=== PATIENT | female | born 1955 | race Caucasian/White ===

== ENCOUNTER → 2017-06-19 | Outpatient (CLI) | payer BC ==
[~2017-06-19] VITALS: Ht 177.8 cm; Wt 81.7 kg
[~2017-06-19] MED LIST: AMITRIPTYLINE H10 M3 PO; ARIMIDEX PO; CELEBREX 200 M200 M1 PO; CYMBALTA20 MG PO; CYMBALTA60 MG PO; MEDROLDOSEPACK PO; MOBIC15 MG PO; NICOTINE TRANSD21 M1 TRANSDERM; NOLVADEX10 MG PO; PROLIA60 MG/1 ML SUBQ; PROVERA5 MG PO; TRAMADOL 50 MG50 MG PO; ULTRAM 50MG TAB50 MG; VIVELLE1 EAC1 TD; ZOFRAN ODT4 MG DISSOLVE; [UNRECOGNIZED DRUG - OTHER] PO; [UNRECOGNIZED DRUG - OTHER] PO
--- NOTE | ~2017-06-19 | HPC ---
[facility] [place] [address] PAIN MANAGEMENT CONSULTATION Name: ARIELA MICHEL Room #: REG [facility] Faye.#: [id number] Admission: 06/19/17 Attend Phys: Anne Rodriguez MD Discharge: Date of : 59 Report #: [id number] THIS REPORT FOR: //name// CC: KIKO Rodriguez DATE OF SERVICE: 06/19/2017 CHIEF COMPLAINT: "Pain in the neck and going down into my arm with numbness in my fingers." HISTORY OF PRESENT ILLNESS: The patient is a 62-year-old female who has been referred to the Pain Clinic for evaluation. The patient states that she had some pain and discomfort in her right arm. She was evaluated. It was felt that she had pain, which was as a result of pathology in her right shoulder and clavicular area. She underwent surgery and noted some improvement in this area. She then underwent physical therapy. Since that time, she has noted worsening of pain and discomfort in her neck with pain radiating down into her arm with numbness, tingling and burning involving the right shoulder, forearm, and fingers. She denies any trauma since her surgery. She has felt that the physical therapy has limited her ability to range her shoulder. She is able to lift her shoulder to about parallel to the floor, but not higher than that. She describes the intensity of her pain as a 7/10. She had surgery in April 2017. Notes that the pain is much better when she "does nothing." She states that about 7 months ago, she was standing on her deck. Pain became progressively worse and that was the time when she started to notice more problems. She also has history of breast cancer. She states that at this juncture, she had some area which was possibly infected. This area was lanced and she has been followed up by her surgeon for the possibility of an infection. The patient had an EMG study because of the pain with numbness, weakness and tenderness she was experiencing in the right arm. ALLERGIES: CODEINE CAUSES NAUSEA AND VOMITING. CURRENT MEDICATIONS: Cymbalta 60 mg daily, tramadol 50 mg 1-2 tablets daily, anastrozole 1 mg daily. PAST MEDICAL HISTORY: Breast cancer, fibromyalgia, osteoporosis. PAST SURGICAL HISTORY: Hysterectomy, tonsillectomy, adenoidectomy, lumpectomy with radiation August 2016, shoulder surgery in 04/19/2017, hysterectomy 2014. FAMILY HISTORY: Positive for coronary artery disease in mother, father, brother grandparents; skin cancer in brother; stomach cancer in grandfather; [place] [address] PAIN MANAGEMENT CONSULTATION Name: ARIELA MICHEL Room #: REG [facility].#: [id number] Admission: 06/19/17 Attend Phys: Anne Rodriguez MD Discharge: Date of : 59 Report #: [id number] mother and father; cerebrovascular accident maternal grandmother. 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 She is , has 2 children. She has not been working for 3 months because of the surgery. Drinks alcohol approximately 2 drinks per week, stopped smoking about 1 year ago. REVIEW OF SYSTEMS: Questionnaire 14 points generally good health, fever, night sweats, fatigue, weakness, headaches, wears glasses, varicose veins, breast pain, numbness and tingling sensation involving the right arm with numbness down to the fingers. LABORATORY DATA: Electromyography diagnosis; Impression: Cervical radiculopathy. Today's electromyographic data: Nerve conduction testing of the right median and ulnar motor and sensory nerves was normal with normal amplitude of action potentials, conduction velocities including across the wrist and elbow, distal latencies and F1 responses. Right radial, medial and lateral antebrachial cutaneous sensory nerve testing was also normal. Screening needle EMG examination of the right upper extremity, cervical and high thoracic paraspinal muscles revealed no increase in insertional or resting activity. There was a reduced voluntary interference pattern with large amplitude, long duration and polyphasic motor unit firings at an increased rate in the indicated muscles. Interpretation of abnormal study due to the above findings. These findings are most consistent with a longstanding, at least 3 months' duration, and inactive right C8 radiculopathy. There is, at present, no electrode diagnostic evidence of other nerve entrapment syndrome, radiculopathy or plexopathy affecting the right upper extremity. MRI of the cervical spine dated 04/12/2017 reveals mild posterior C4/C5, C5/C6, and C6/C7 disk bulge osteophyte spurring is present. There is a mild central posterior C7/T1 disk protrusion. The spinal canal and neural foramen are normal in diameter. The spinal cord is normal in size and configuration with normal signal intensity. Cervical vertebrae are intact with normal alignment and marrow signal. Impression: 1. Mild broad posterior C4/C5, C5/C6, C6/C7 disk bulge osteophyte spurring. 2. Minimal central posterior disk protrusion. PHYSICAL EXAMINATION: VITAL SIGNS: Blood pressure 157/84, pulse 70, respiratory rate 16, room air saturation 98%. Height 5 feet 10 inches, weight 177 pounds, BMI is 25. GENERAL: Well-developed, well-nourished female, moving with her right hand in a guarded fashion. Appearance, age appropriate. Orientation, alert and oriented. Affect appropriate. HEENT: Head is atraumatic. Eyes: Extraocular muscles intact, conjunctivae and sclerae are clear with no nystagmus. Ears: Grossly normal hearing. Nose: No [facility] [address] [place] [address] PAIN MANAGEMENT CONSULTATION Name: ARIELA MICHEL Room #: REG [facility].#: [id number] Admission: 06/19/17 Attend Phys: Anne Rodriguez MD Discharge: Date of : 59 Report #: [id number] deformity or discharge. Mouth: Dentition appears good. No exudate and membranes are moist. NECK: Without adenopathy. No bruits or JVD. The patient does have some soreness to palpation in the area of the right scapular area. Complains of pain and discomfort radiating down her right deltoid, forearm with numbness in her fingers and thumb. HEART: Regular rate. LUNGS: Clear to auscultation. ABDOMEN: Nontender. MUSCULOSKELETAL: Appears to be normally aligned without scoliosis, kyphosis or lordosis. Left and right sciatic outflow tract are negative. Left lateral bending, right lateral bending, lumbar extension, lumbar rotation are all within normal limits. The patient complains of pain and discomfort in the right shoulder area with these movements. Upper arm musculature judged to be 5/5 in the left upper extremity. The patient gives way to pain and discomfort in the healing right shoulder area. Deep tendon reflexes are +2 at the right biceps, +1 at the triceps and brachioradialis. Deep tendon reflexes are +1 biceps, trace triceps and brachioradialis. Deep tendon reflexes are +2 at the knees and ankles bilaterally. Muscle strength is 5/5 for the major muscle groups of the lower extremity. 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 Wrist flexion and extension 5/5 on the left, 4+ on the right. The patient complains of a sensation of burning, tingling and decreased sensation in the right shoulder, arm, forearm and involving her thumb, index and middle finger which are numb. Skin color appears normal bilaterally. No clubbing, cyanosis or edema in the lower extremities. Spurling's maneuver increased pain and discomfort down in the right shoulder, arm and hand. IMPRESSION: 1. Cervical radiculopathy with numbness and tingling in the right arm, hand and fingers. EMG C8 radiculopathy. 2. Fibromyalgia. 5. Osteoporosis. 6. Breast cancer - the patient states that this had been lanced in the reconstructed area. It is still being treated for possibility of infection. RECOMMENDATIONS: We have discussed the treatment options with the patient. Given that she has had a mastectomy, the area appears to be under treatment for possibility of infection, we will not proceed with an epidural steroid injection today. We have discussed the possible complications of steroid use at the times of infection. We have also discussed to refrain from using tobacco products, this can exacerbate healing. We will have the patient follow up with her primary physician. If he feels that the infection has passed, we will then have the patient return to the Pain Clinic, at which time we will consider a cervical epidural steroid injection. Of course, the patient is eager to get back to work because of the amount of time she has been off. We will try amitriptyline to notice effectiveness and decreasing some of the shooting, burning pain, which [facility] [address] [place] [address] PAIN MANAGEMENT CONSULTATION Name: ARIELA MICHEL Room #: REG CL [place]#: [id number] Admission: 06/19/17 Attend Phys: Anne Rodriguez MD Discharge: Date of : 59 Report #: [id number] she is experiencing. This medication can often times be helpful with these types of pains. We have given her a script, 10 mg tablets have been given, and she has been advised on how to take them. She will call us if she has any problems with her medications. We will consider an epidural steroid injection on her return. We would like to thank you for letting us participate in her care. We hope she continues to improve. <ELECTRONICALLY SIGNED> By: Anne Rodriguez MD 08/12/17 1415 [id number] [id number] Anne Rodriguez MD /nt
[2017-06-19 09:52] VITALS: BP 157/84
== END ==
LOC: PAIN 12-18 09:48
DX: M50.221 Other cervical disc displacement at C4-C5 level (principal); M50.222 Other cervical disc displacement at C5-C6 level; M50.223 Other cervical disc displacement at C6-C7 level; M46.02 Spinal enthesopathy, cervical region; M25.78 Osteophyte, vertebrae; Z85.3 Personal history of malignant neoplasm of breast; Z87.891 Personal history of nicotine dependence; Z72.89 Other problems related to lifestyle

== ENCOUNTER → 2017-06-24 | Outpatient (CLI) | payer BC ==
[~2017-06-24] VITALS: Ht 177.8 cm; Wt 82.8 kg
--- NOTE | ~2017-06-24 | HPC ---
[facility] [place] [address] [place] [address] PAIN MANAGEMENT CONSULTATION Name: CIRILO RIVERSARIELA PRASAD Room #: REG [facility]RY Faye.#: [id number] Admission: 06/24/17 Attend Phys: Anne Rodriguez MD Discharge: Date of : 59 Report #: [id number] THIS REPORT FOR: //name// CC: Darren Rodriguez DATE OF SERVICE: 06/24/2017 FOLLOWUP COMPLAINT. "There is no infection at this point in the breast and I have come to undergo the cervical epidural injection." FOLLOWUP HISTORY: The patient is a 62-year-old female who has been seen in the pain clinic because of cervical radiculopathy with experience of pain radiating down into the right arm with numbness, weakness and tenderness down into her fingers. FOLLOWUP HISTORY: The patient is returning to the pain clinic. She was seen at the last visit on 06/19/2017. At that time, she had pain, which was radiating down into her right arm with findings consistent with cervical radiculopathy. She also had an EMG study secondary to the numbness, weakness and tenderness she was experiencing in her right arm. She rates her pain as a 7/10 at this juncture. She has followed up with her surgeon. There was some question as to possibility of infection in the area of her mastectomy. After evaluation by the surgery, it was found that things have healed reasonably well and she is not infected in the mastectomy site. There is no drainage. States that her physician stated it would be okay if she underwent an epidural injection at this juncture. ALLERGIES: CODEINE CAUSES NAUSEA AND VOMITING. CURRENT MEDICATIONS: Cymbalta 60 mg daily, tramadol 50 mg 1-2 tablets daily, anastrozole 1 mg daily. PAST SURGICAL HISTORY: Lumpectomy with radiation in 08/2016. Shoulder surgery on 04/19/2017. PAIN CLINIC ASSESSMENT: 1. History of osteoarthritis/rheumatoid arthritis. The patient is not being treated for either of these. 2. Height 5 feet 10 inches tall, weight 187 pounds. 3. BMI is 26. 4. VITAL SIGNS: Blood pressure 133/72, pulse 70, respiratory rate 16, room air saturation 100%. Pain intensity 7/10. 5. Fall risk. The patient is not a fall risk, has not fallen in the last [address] [address] PAIN MANAGEMENT CONSULTATION Name: CIRILO RIVERSARIELA Room #: REG CLI RosauraRosaura#: [id number] Admission: 06/24/17 Attend Phys: Anne Rodriguez MD Discharge: Date of : 59 Report #: [id number] 6. The patient is not on a blood thinner. 7. History of hypertension. The patient is not being treated for hypertension. 8. Opioid therapy greater than 6 weeks. The patient is not on opioid therapy greater than 6 weeks. 9. Tobacco use. Did smoke, but stopped about 1 year ago approximately 2 alcoholic beverages per week. PHYSICAL EXAMINATION: GENERAL: The patient is a well-developed female in no apparent distress, appears stated age. ORIENTATION: Alert and oriented x 3. Affect is appropriate. HEENT: Head is atraumatic. Eyes: Her extraocular eye muscles intact. Conjunctival and sclerae are clear without nystagmus. Ears, grossly normal hearing. Nose: No deformity or discharge. Mouth and dentation appears normal. No exudate. Membranes are moist. NECK: Without adenopathy, bruits, or JVD. The patient does have some soreness in the area of the right scapular area. Notes pain and discomfort with radiation down to the right deltoid area, has numbness and changes in her forearm, finger and thumb of the right. HEART: Rate regular. LUNGS: Clear. ABDOMEN: Nontender. EXTREMITIES: Upper musculature is judged to be 5/5 in the left upper extremity, right arm gives way to pain and discomfort in the healing right shoulder area. Deep tendon reflexes are +2 at the right biceps and +1 to the triceps and brachioradialis. IMPRESSION: 1. Cervical radiculopathy with numbness and tingling in the right arm, hand and fingers. EMG showing a C8 radiculopathy. 2. The patient is not having any discharge or signs of infection in the area of the mastectomy. 3. Fibromyalgia. 4. Osteoporosis. 5. Shoulder pain status post surgery on the right. RECOMMENDATIONS: We discussed treatment options with the patient. Risks and benefits of the epidural steroid injection were discussed. She has seen her surgeon. Does not appear to have any infection going on at this juncture. She has returned for a cervical epidural steroid injection. Risks and benefits of the procedure were again reviewed with the patient. They include, but are not limited to infection, increased muscle soreness, cervical radicular pain, worsening, nerve damage, cervical or spinal headache and the patient elects to proceed. PROCEDURE NOTE: The patient was placed in the prone position. Fluoroscopy was [facility] [address] [place] [address] PAIN MANAGEMENT CONSULTATION Name: ARIELA MICHEL Room #: REG CORRY Laughlin#: [id number] Admission: 06/24/17 Attend Phys: Anne Rodriguez MD Discharge: Date of : 59 Report #: [id number] used to identify the C7-T1 interspace. This area had been sterilely prepped with Betadine and infiltrated with 0.25% bupivacaine. After appropriate location of the target site, 0.25% bupivacaine was infiltrated into this area. A 17-gauge Tuohy with loss of resistance technique was used to gain access to the epidural space. There was no CSF, heme or paresthesia. A total of 120 mg triamcinolone was placed. Anterior and lateral imaging with fluoroscopy confirmed appropriate placement. The patient was then taken to the recovery room. A Band-Aid was at the site. There was no bleeding. She remained in the pain clinic for an appropriate amount of time. She will follow up in the future as needed. We would like to thank you for letting us participate in her care. We hope she continues to improve. <ELECTRONICALLY SIGNED> By: Anne Rodriguez MD 07/08/17 1007 [id number] Anne Rodriguez MD /YULY
[2017-06-24 11:07] VITALS: BP 133/72
== END | disposition home or self-care (01) ==
LOC: PAIN 06:56
DX: M54.12 Radiculopathy, cervical region (principal); M79.7 Fibromyalgia; I10 Essential (primary) hypertension; M19.90 Unspecified osteoarthritis, unspecified site; M81.0 Age-related osteoporosis without current pathological fracture; M25.511 Pain in right shoulder; Z98.890 Other specified postprocedural states; Z88.6 Allergy status to analgesic agent; Z87.891 Personal history of nicotine dependence; Z79.891 Long term (current) use of opiate analgesic; Z79.899 Other long term (current) drug therapy

== ENCOUNTER → 2017-07-29 | Outpatient (CLI) | payer BC ==
[~2017-07-29] VITALS: Ht 177.8 cm; Wt 83.9 kg
--- NOTE | ~2017-07-29 | HPC ---
[facility] [address] [place] [address] PAIN MANAGEMENT CONSULTATION Name: ARIELA MICHEL Room #: REG CORRY Truman#: [id number] Admission: 07/29/17 Attend Phys: Anne Rodriguez MD Discharge: Date of : 59 Report #: [id number] THIS REPORT FOR: //name// CC: KIKO Rodriguez DATE OF SERVICE: 07/29/2017 FOLLOWUP COMPLAINT: Pain in the arms, fingers with numbness has improved. Having some right shoulder pain. FOLLOWUP HISTORY: The patient is a 62-year-old female who has been seen in the pain clinic because of cervical radiculopathy with some numbness, tingling and discomfort down into her right arm and fingers. She has been found to have C8 radiculopathy. She underwent a cervical epidural steroid injection in June. She has noticed some improvement in her pain. She initially noted some increased pain and discomfort. Over the next week or so her pain continued to improve. 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 She has been able to return to work. She also has had surgery. There was an area of possible infection in the area of her mastectomy. This has resolved. Overall, she feels that things are going reasonably well and improving. She still has some pain and discomfort in her right shoulder. She has undergone a manipulation of the right shoulder. There is increased pain and discomfort in that joint and area. Overall, things have improved, but she is still having some discomfort and at this juncture would like to continue on a conservative approach. She will consider another cervical epidural steroid injection if Mobic and a Medrol Dosepak are not helpful. She will continue working. She will call us if she has any problems. ALLERGIES: CODEINE CAUSES NAUSEA AND VOMITING. CURRENT MEDICATIONS: Include Cymbalta 60 mg daily, tramadol 50 mg 1-2 tablets daily, anastrozole 1 mg daily. PAST SURGICAL HISTORY: Shoulder surgery 04/19/2017, lumpectomy with radiation in 08/2016. PAIN CLINIC ASSESSMENT: 1. The patient has history of osteoarthritis and rheumatoid arthritis. 2. Height 5 feet 10 inches, weight 187 pounds, BMI is 26.5. 3. Vital signs, blood pressure 144/84, pulse 78, respiratory rate 16, room air saturation is 98%. 4. Pain Intensity: 6/10. 5. Fall Risk: The patient has not fallen in the last 3 months. 6. Blood thinner: The patient is [place] [address] PAIN MANAGEMENT CONSULTATION Name: ARIELA MICHEL [id number] Admission: 07/29/17 Attend Phys: Anne Rodriguez MD Discharge: Date of : 59 Report #: [id number] 7. Hypertension. The patient is not being treated for hypertension. 8. Opioid therapy, greater than 6 weeks. The patient is not on a long-term opioid regimen. 9. Risk assessment tool. 10. Functional assessment tool. 11. The patient's impact score is 49/70 in regards to general activities, mood, walking ability, work, relationships with others, sleep and enjoyment of life. 12. Recreational drug use: The patient denies use of recreational drugs. 13. Tobacco: The patient smokes 1 pack per day, has smoked for 25 years. Drinks alcoholic beverages on occasion, approximately 1 per week. PHYSICAL EXAMINATION: GENERAL: The patient is a well-developed white female with no apparent distress. Appears her stated age. ORIENTATION: The patient is alert and oriented x 3. Affect is appropriate. HEENT: Head is atraumatic, normocephalic. Extraocular eye muscles intact. No nystagmus. Hearing is grossly normal. No nasal discharge or complaint. Mouth is moist. NECK: Without adenopathy, bruits or JVD. The patient does have some soreness in the area of her right scapula. Notes some pain and discomfort, which radiated down into the right, though improved somewhat since we saw her last, less discomfort in the deltoid, forearm, fingers and thumb. HEART: Regular rate. Normal S1, S2. LUNGS: Clear to auscultation. ABDOMEN: Nontender. EXTREMITIES: Upper extremity is judged to be 5/5 with normal bulk and symmetrical musculature. The patient has a healing right shoulder. Deep tendon reflexes are +2 on the right biceps and +1 on the triceps and brachioradialis. IMPRESSION: 1. Cervical radiculopathy with numbness and tingling in the right arm, improving. EMG shows C8 radiculopathy. 2. The patient is recovering from a manipulation of the right shoulder approximately 2 weeks ago, having signs of frozen shoulder. 3. Fibromyalgia. 4. Osteoporosis. RECOMMENDATIONS: We discussed treatment options with the patient. At this juncture, she is doing reasonably well. She still has some pain and discomfort in the right shoulder, which is status post manipulation. She has some continued pain down into her arm. Notes that the pain was significant after the injection, but improved as time went on. She has noticed that she has gained some weight. She attributes this to use of Elavil at bedtime. At this juncture, she chooses not to continue with use of Elavil because of the weight gain. She would like to try conservative approach. We will provide her with a Medrol Dosepak and Mobic to take over the next couple of weeks. Again, if she [facility] [address] [address] PAIN MANAGEMENT CONSULTATION Name: ARIELA MICHEL Room #: REG [facility].#: [id number] Admission: 07/29/17 Attend Phys: Anne Rodriguez MD Discharge: Date of : 59 Report #: [id number] finds that her pain continues to be problematic, she will return and at which time we will consider a second cervical epidural steroid injection. We would like to thank you for letting us participate in her care. We hope she continues to improve. <ELECTRONICALLY SIGNED> By: Anne Rodriguez MD 08/12/17 1434 0817 2217 Anne Rodriguez MD /YULY
--- NOTE | ~2017-07-29 | HPC ---
[facility] [place] [address] PAIN MANAGEMENT CONSULTATION Name: ARIELA MICHEL Room #: REG CORRY MckinneyRosaura#: [id number] Admission: 07/29/17 Attend Phys: Anne Rodriguez MD Discharge: Date of : 59 Report #: [id number] THIS REPORT FOR: //name// CC: KIKO Rodriguez DATE OF SERVICE: 07/29/2017 ADDENDUM PAIN CLINIC ASSESSMENT: 1. The patient's impact score is 49/70 in regards to general activities, mood, walking ability, work, relationships with others, sleep and enjoyment of life. 2. Recreational drug use: The patient denies use of recreational drugs. 3. Tobacco: The patient smokes 1 pack per day, has smoked for 25 years. Drinks alcoholic beverages on occasion, approximately 1 per week. PHYSICAL EXAMINATION: GENERAL: The patient is a well-developed white female with no apparent distress. Appears her stated age. ORIENTATION: The patient is alert and oriented x 3. Affect is appropriate. HEENT: Head is atraumatic, normocephalic. Extraocular eye muscles intact. No nystagmus. Hearing is grossly normal. No nasal discharge or complaint. Mouth is moist. NECK: Without adenopathy, bruits or JVD. The patient does have some soreness in the area of her right scapula. Notes some pain and discomfort, which radiated down into the right, though improved somewhat since we saw her last, less discomfort in the deltoid, forearm, fingers and thumb. HEART: Regular rate. Normal S1, S2. LUNGS: Clear to auscultation. ABDOMEN: Nontender. EXTREMITIES: Upper extremity is judged to be 5/5 with normal bulk and symmetrical musculature. The patient has a healing right shoulder. Deep tendon reflexes are +2 on the right biceps and +1 on the triceps and brachioradialis. IMPRESSION: 1. Cervical radiculopathy with numbness and tingling in the right arm, improving. EMG shows C8 radiculopathy. 2. The patient is recovering from a manipulation of the right shoulder approximately 2 weeks ago, having signs of frozen shoulder. 3. Fibromyalgia. 4. Osteoporosis. RECOMMENDATIONS: We discussed treatment options with the patient. At this juncture, she is doing reasonably well. She still has some pain and discomfort [address] [address] PAIN MANAGEMENT CONSULTATION Name: ARIELA MICHEL Room #: REG CL Truman#: [id number] Admission: 07/29/17 Attend Phys: Anne Rodriguez MD Discharge: Date of : 59 Report #: [id number] in the right shoulder, which is status post manipulation. She has some continued pain down into her arm. Notes that the pain was significant after the injection, but improved as time went on. She has noticed that she has gained some weight. She attributes this to use of Elavil at bedtime. At this juncture, she chooses not to continue with use of Elavil because of the weight gain. She would like to try conservative approach. We will provide her with a Medrol Dosepak and Mobic to take over the next couple of weeks. Again, if she finds that her pain continues to be problematic, she will return and at which time we will consider a second cervical epidural steroid injection. We would like to thank you for letting us participate in her care. We hope she continues to improve. <ELECTRONICALLY SIGNED> By: Anne Rodriguez MD 08/28/17 0811 [id number] Anne Rodriguez MD /nt
[2017-07-29 10:01] VITALS: BP 144/84
== END ==
LOC: PAIN 06:57
DX: M54.12 Radiculopathy, cervical region (principal); R20.2 Paresthesia of skin; M79.7 Fibromyalgia; M81.0 Age-related osteoporosis without current pathological fracture; Z88.5 Allergy status to narcotic agent; Z98.890 Other specified postprocedural states

== ENCOUNTER → 2018-06-30 | Outpatient (CLI) | payer BC | LOC: RAD 11:41 | DX: M47.22 Other spondylosis with radiculopathy, cervical region (principal); M50.121 Cervical disc disorder at C4-C5 level with radiculopathy; M25.78 Osteophyte, vertebrae; M48.02 Spinal stenosis, cervical region ==